=== PATIENT | female | born 1970 | race Caucasian/White ===

== ENCOUNTER 2018-02-10 15:02 | Emergency (ER) | payer OTHER ==
--- NOTE | 2018-02-10 15:10 | PDOC ---
History of Present Illness <Estuardo Lopez - Last Filed: 02/10/18 18:18> - General History Source: Patient Exam Limitations: No Limitations - History of Present Illness Initial Comments: 02/10/18 21:29 Ms. Aguilar is a 47 yo F with a hx of hashimotos on spironolactone presents to the emergency department with left sided back pain with associative epigastric pain and left arm pain. She states the left back pain began 1 week ago and the epigastric pain and left arm pain began today after her workout. She denies pain , instead describing it as "isn't right" when describing the qualities of it. She states the epigastric pain is constant and increases with standing and decreases with lying down without radiation. Positive associative symptoms: nausea, dehydration, and increased stress from work. Denies the following: fever , headaches, reflux, vomiting, SOB, abdominal pain, dysuria, hematuria, diarrhea , melena, hematochezia, and leg pain/swelling. Pmhx: Hashimotos Shx: C/S 4 yrs ago. Appendectomy 21 years ago. Meds: spironolactone Allergies: NKDA Social hx: Denies alcohol, smoking, and drug use. <Den Vo - Last Filed: 02/10/18 22:02> - General Chief Complaint: Weakness Stated Complaint: WEAK PAIN TO CHEST AND LEFT ARM Time Seen by Provider: 02/10/18 15:06 Past History <Estuardo Lopez - Last Filed: 02/10/18 18:18> <Den Vo - Last Filed: 02/10/18 22:02> - Past Medical History Allergies/Adverse Reactions: Allergies Allergy/AdvReac Type Severity Reaction Status Date / Time No Known Allergies Allergy Unverified 02/10/18 15:04 Home Medications: Ambulatory Orders Spironolactone 100 mg PO DAILY 02/10/18 Review of Systems - Review of Systems Able to Perform ROS?: Yes Constitutional: No: Chills, Diaphoresis, Fever HEENTM: No: Eye Pain, Nose Pain, Throat Pain, Mouth Pain Respiratory: No: Shortness of Breath Cardiac (ROS): Yes: Chest Pain. No: Palpitations, Syncope, Chest Tightness ABD/GI: Yes: Nausea, Poor Fluid Intake. No: Abd. Pain w/ defecation, Constipated, Diarrhea, Rectal Bleeding, Vomiting, Abdominal cramping, Tarry Stools : Yes: Flank Pain (left). No: Burning, Dysuria, Hematuria Musculoskeletal: No: Back Pain Integumentary: No: Rash Neurological: No: Headache, Tingling, Tremors, Weakness, Ataxia Psychiatric: Yes: Stressors Endocrine: No: Unexplained Weight Gain Hematologic/Lymphatic: No: Anemia <Den Vo - Last Filed: 02/10/18 22:02> *Physical Exam - Vital Signs Last Vital Signs Temp Pulse Resp BP Pulse Ox 98.1 F 76 16 110/69 100 02/10/18 15:04 02/10/18 18:02 02/10/18 18:02 02/10/18 18:02 02/10/18 18:02 <JohnEstuardo hill - Last Filed: 02/10/18 18:18> - Physical Exam General Appearance: Yes: Nourished, Appropriately Dressed HEENT: positive: EOMI, CHIN, Normal ENT Inspection Neck: positive: Trachea midline. negative: Lymphadenopathy (R), Lymphadenopathy (L) Respiratory/Chest: positive: Lungs Clear, Normal Breath Sounds Cardiovascular: positive: Regular Rhythm, Regular Rate, S1, S2. negative: Systolic Murmur Vascular Pulses: Dorsalis-Pedis (R): 3+, Doralis-Pedis (L): 3+ Gastrointestinal/Abdominal: positive: Normal Bowel Sounds. negative: Tender Lymphatic: negative: Adenopathy Musculoskeletal: positive: Normal Inspection. negative: CVA Tenderness, CVA Tenderness (R), CVA Tenderness (L), Muscle Spasm, Vertebral Tenderness Extremity: positive: Normal Capillary Refill, Normal Inspection, Normal Range of Motion. negative: Swelling, Calf Tenderness, Erythema, Inflammation Integumentary: positive: Normal Color, Dry, Warm. 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, Fully Oriented, Alert, Normal Mood/ Affect, Motor Strength 5/5 <Den Vo - Last Filed: 02/10/18 22:02> ED Treatment Course - LABORATORY CBC & Chemistry Diagram: 02/10/18 16:16 02/10/18 16:16 - ADDITIONAL ORDERS Additional order review: Laboratory Results 02/10/18 02/10/18 02/10/18 16:16 16:16 16:16 Sodium 134 L Potassium 3.8 Chloride 102 Carbon Dioxide 24 Anion Gap 8 BUN 15 Creatinine 0.8 Creat Clearance w eGFR > 60 Random Glucose 104 Calcium 9.0 Total Bilirubin 0.8 AST 21 ALT 15 Alkaline Phosphatase 45 Creatine Kinase 123 Troponin I < 0.03 Total Protein 6.9 Albumin 4.0 Lipase 136 Urine Color Yellow Urine Appearance Clear Urine pH 5.5 Ur Specific [place] <= 1.005 Urine Protein Negative Urine Glucose (UA) Negative Urine Ketones Negative Urine Blood 2+ H Urine Nitrite Negative Urine Bilirubin Negative Urine Urobilinogen 0.2 Ur Leukocyte Esterase Negative Urine RBC 2-5 Urine WBC 0-2 Urine Bacteria Few Urine HCG, Qual Negative 02/10/18 16:16 RBC 4.34 MCV 89.1 MCHC 34.0 RDW 12.7 MPV 8.2 Neutrophils % 57.4 Lymphocytes % 31.7 Monocytes % 7.4 Eosinophils % 3.0 Basophils % 0.5 - Medications Given in the ED: ED Medications Discontinued Medications Generic Name Dose Route Start Last Admin Trade Name Freq PRN Reason Stop Dose Admin Acetaminophen 1,000 mg 02/10/18 16:18 02/10/18 16:30 Tylenol - PO 02/10/18 16:19 1,000 mg ONCE ONE Administration Sodium Chloride 1,000 mls @ 1,000 mls/hr 02/10/18 16:15 02/10/18 16:27 Normal Saline - IV 02/10/18 17:14 1,000 mls/hr .Q1H ONE Administration <Estuardo Lopez - Last Filed: 02/10/18 18:18> - LABORATORY CBC & Chemistry Diagram: 02/10/18 16:16 02/10/18 16:16 <Den Vo - Last Filed: 02/10/18 22:02> Medical Decision Making - Medical Decision Making 02/10/18 21:51 Shira Aguilar is 47 yo F with hx of hashimotors who presents with multiple symptoms. Initial vitals: Initial Vital Signs Temp Pulse Resp BP Pulse Ox 98.1 F 98 H 20 142/80 100 02/10/18 15:04 02/10/18 15:04 02/10/18 15:04 02/10/18 15:04 02/10/18 15:04 Work up: ddx: due to vague symptoms, differentials was wide. ACS, PNA, pericarditis, pleuritis, nephrolithiasis, constipation, gastritis, GERD, pancreatitis, UTI Work up: Laboratory Tests 02/10/18 02/10/18 02/10/18 16:16 16:16 16:16 WBC 7.3 RBC 4.34 Hgb 13.1 Hct 38.7 MCV 89.1 MCH 30.3 MCHC 34.0 RDW 12.7 Plt Count 283 MPV 8.2 Absolute Neuts (auto) 4.3 Neutrophils % 57.4 Lymphocytes % 31.7 Monocytes % 7.4 Eosinophils % 3.0 Basophils % 0.5 Sodium 134 L Potassium 3.8 Chloride 102 Carbon Dioxide 24 Anion Gap 8 BUN 15 Creatinine 0.8 Creat Clearance w eGFR > 60 Random Glucose 104 Calcium 9.0 Total Bilirubin 0.8 AST 21 ALT 15 Alkaline Phosphatase 45 Creatine Kinase 123 Troponin I Total Protein 6.9 Albumin 4.0 Lipase 136 Urine Color Yellow Urine Appearance Clear Urine pH 5.5 Ur Specific [place] <= 1.005 Urine Protein Negative Urine Glucose (UA) Negative Urine Ketones Negative Urine Blood 2+ H Urine Nitrite Negative Urine Bilirubin Negative Urine Urobilinogen 0.2 Ur Leukocyte Esterase Negative Urine RBC 2-5 Urine WBC 0-2 Urine Bacteria Few Urine HCG, Qual Negative 02/10/18 16:16 WBC RBC Hgb Hct MCV MCH MCHC RDW Plt Count MPV Absolute Neuts (auto) Neutrophils % Lymphocytes % Monocytes % Eosinophils % Basophils % Sodium Potassium Chloride Carbon Dioxide Anion Gap BUN Creatinine Creat Clearance w eGFR Random Glucose Calcium Total Bilirubin AST ALT Alkaline Phosphatase Creatine Kinase Troponin I < 0.03 Total Protein Albumin Lipase Urine Color Urine Appearance Urine pH Ur Specific [place] Urine Protein Urine Glucose (UA) Urine Ketones Urine Blood Urine Nitrite Urine Bilirubin Urine Urobilinogen Ur Leukocyte Esterase Urine RBC Urine WBC Urine Bacteria Urine HCG, Qual labs within normal limits. UA showed 2+ blood. Despite the patient stating she did not have hematuria, she stated that she had it 7 months prior during her PCP appointment. She denies being on her menstrual cycle. Pt understands the plan for her to follow up with her PCP for the hematuria. ACS was ruled out. Dispo: Home DC <Den Vo - Last Filed: 02/10/18 22:02> *DC/Admit/Observation/Transfer - Discharge Dispostion Decision to Admit order: No <Estuardo Lopez - Last Filed: 02/10/18 18:18> - Discharge Dispostion Decision to Admit order: No <Den Vo - Last Filed: 02/10/18 22:02> Diagnosis at time of Disposition: Hematuria Qualifiers: Hematuria type: asymptomatic microscopic Qualified Code(s): R31.21 - Asymptomatic microscopic hematuria Back pain Qualifiers: Back pain location: low back pain Chronicity: acute Back pain laterality: left Sciatica presence: without sciatica Qualified Code(s): M54.5 - Low back pain - Discharge Dispostion Disposition: HOME Condition at time of disposition: Improved - Referrals Referrals: Jitendra Rob MD [Staff Physician] - - Patient Instructions Printed Discharge Instructions: DI for Low Back Pain, DI for Hematuria Additional Instructions: Return to the emergency department immediately with ANY new, persistent or worsening symptoms. There was blood found a new urine please follow-up with your primary care doctor to recheck your urine. Go once you are done with your period. You MUST call and follow up with your doctor in 3-5 days for further evaluation of your symptoms. Results were discussed with you. Please make sure your doctor reviews the results of your emergency evaluation. Print Language: CAMBODIAN
--- NOTE | 2018-02-10 15:18 | PDOC ---
Attending Attestation - Resident Resident Name: Den Vo - ED Attending Attestation I have performed the following: I have examined & evaluated the patient, The case was reviewed & discussed with the resident, I agree w/resident's findings & plan, Exceptions are as noted - HPI HPI: 02/10/18 15:48 47y F hx of hashimotos presents with complaint of 1 week of interrmitent L back pain. Pt notes she reently started working out again after a period of hiatus. She thought it might be a muscl estrain so stopped working out for a bit until yesterday when she started to run and again went to the gym today. Pt notes she felt fine when she was running yesterday and doing the eliptical today. however , as she was preparing to eat after her workup, she developed some mild epigastric tightness and some nausea. Pt denies any sob, diaphoresis, vomiting, [place], leg edema, headache, dizziness, numnbess/tingling/waekness. The back pain did seem to get worse with standing but improved with lyng down. pt drinks a few glasses of wine a week. 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 LMP 01/17/18 will have her fu with her PMD when she is well off her period to have her UA assessed as pt is feeling better, will dfer further imaging (ie: CT / US for kidneys tones) Heart Score/ECG Review - ECG Impressions Comment:: 02/10/18 15:39 Twelve-lead EKG was performed and reviewed by me. There is normal sinus rhythm with a normal rate. Rate of 88 The axis is normal. The intervals are normal. There is normal R wave progression There are no ST or T wave abnormalities. Impression: Normal twelve-lead EKG
[2018-02-10 15:41] VITALS: TEMP 98.1; BMI 23.8
[2018-02-10] MEDS ORDERED: SODIUM CHLORIDE 1,000 ML IV ONE (16:15)
[2018-02-10] MEDS ORDERED: ACETAMINOPHEN 500 MG TABLET (FP) PO ONE (16:18)
[2018-02-10] MEDS ORDERED: ACETAMINOPHEN 500 MG TABLET (FP) ONE (16:29)
[2018-02-10 16:32] LABS: BASO % 0.5 % (0-2.0); HEMATOCRIT 38.7 % (32.4-45.2); HEMOGLOBIN 13.1 GM/dl (10.7-15.3); LYMPH % 31.7 % (8-40); MCH 30.3 pg (25.7-33.7); MEAN CELL VOLUME 89.1 fl (80-96); MEAN PLT VOLUME 8.2 fl (7.5-11.1); MONO % 7.4 % (3.8-10.2); NEUT % 57.4 % (42.8-82.8); PLATELET COUNT 283 K/MM3 (134-434); RBC 4.34 M/mm3 (3.60-5.2); RDW 12.7 % (11.6-15.6); WHITE BLOOD COUNT 7.3 K/mm3 (4.0-10.8)
[2018-02-10 16:33] LABS: HCG,QUALITATIVE URINE Negative
[2018-02-10 16:37] LABS: PH,URINE 5.5 (4.5-8); URINE APPEARANCE Clear; URINE BILIRUBIN Negative (NEGATIVE); URINE COLOR Yellow; URINE GLUCOSE (UA) Negative (NEGATIVE); URINE KETONE Negative (NEGATIVE); URINE LEUK ESTERASE Negative (NEGATIVE); URINE NITRITE Negative (NEGATIVE); URINE PROTEIN Negative (NEGATIVE); URINE UROBILINOGEN 0.2 (0.2-1.0)
[2018-02-10 16:49] LABS: ALK PHOS 45 U/L (32-92); ANION GAP 8 MMOL/L (8-16); BILIRUBIN,TOTAL 0.8 mg/dl (0.2-1.0); BLOOD UREA NITROGEN 15 mg/dl (7-18); CHLORIDE 102 mmol/L (98-107); CO2 24 mmol/L (22-28); CREATININE 0.8 mg/dl (0.6-1.3); GLUCOSE,RANDOM 104 mg/dl (74-106); POTASSIUM 3.8 mmol/L (3.5-5.1); SGOT/AST 21 U/L (10-42); SGPT/ALT 15 U/L (10-40); SODIUM 134 mmol/L (136-145); TOT PROT 6.9 g/dl (6.4-8.3)
[2018-02-10 16:53] LABS: URINE BACTERIA FEW /hpf (NEGATIVE); URINE WBC 0-2 (0-5)
[2018-02-10 18:04] VITALS: BP 110/69; PULSE 76
[2018-02-10 18:04] LABS: LIPASE 136 U/L (73-393)
--- NOTE | 2018-02-12 14:15 | EKG ---
Test Reason : Blood Pressure : / mmHG Vent. Rate : 088 BPM Atrial Rate : 088 BPM P-R Int : 146 ms QRS Dur : 080 ms QT Int : 362 ms P-R-T Axes : 055 033 015 degrees QTc Int : 438 ms NORMAL SINUS RHYTHM NORMAL ECG NO PREVIOUS ECGS AVAILABLE Confirmed by KADEEM SANTIZO MD ([id number]) on 02/12/2018 2:15:37 PM Referred By: EDVIN Confirmed By:KADEEM SANTIZO MD
== END 2018-02-10 18:27 | disposition home or self-care (01) ==
LOC: FER 15:02
PROC: 3E0337Z Introduction of Electrolytic and Water Balance Substance into Peripheral Vein, Percutaneous Approach (ICD-10-PCS; principal; 2018-02-10)
DX: S37.009A Unspecified injury of unspecified kidney, initial encounter (principal); E86.0 Dehydration; X58.XXXA Exposure to other specified factors, initial encounter; Y93.89 Activity, other specified; Y92.9 Unspecified place or not applicable
CPT/HCPCS: 36415; 71046-TC-FY; 80053; 81003; 81015; 82550; 83690; 84484; 84703; 85025; 93005; 99285-25; J7030